=== PATIENT | male | born 1980 | race Caucasian/White ===

== ENCOUNTER 2022-07-09 17:24 | Emergency (ER) | payer OTHER, SELFPAY ==
[2022-07-09 17:24] VITALS: BP 180/97; PULSE 81; RESP 14; TEMP 36.1; O2SAT 97; BMI 37.8
[2022-07-09] MEDS: Diphth,Pertuss(Acell),Tet Vac 0.5 ML Vial IM (18:56)
--- NOTE | 2022-07-09 19:07 | EX.ED.GENINJ ---
HPI History of Present Illness Chief Complaint: Laceration Detail of Chief Complaint: Scalp laceration Informant: patient Onset/Context/Timing Onset: Today Narrative Narrative: Patient presents secondary to scalp laceration. Late this morning he was bending over and hit his head against a shelf bracket. He is a small laceration to top of his head. He believes his last tetanus was about 7 years ago. He has not had any nausea, vomiting, vision changes throughout the day. PFSH PFSH no medical history Home Medications Omeprazole [Prilosec] 40 mg PO DAILY 08/24/13 [History Last Taken 08/25/13 08:30] lithium carbonate 300 mg tablet 900 mg PO DAILY 08/24/13 [History Last Taken 08/25/13 08:30] coenzyme Q10 100 mg capsule (Co Q-10) 100 mg PO DAILY 08/25/13 [History Last Taken 08/24/13] glucosamine HCl 500 mg-msm 83 mg-chondroitin 400 mg tablet 1 ea PO DAILY 08/25/13 [History Last Taken Unknown] multivitamin with folic acid 400 mcg tablet (Thera) 1 tab PO DAILY 08/25/13 [History Last Taken Unknown] omega-3 fatty acids-fish oil 300 mg-1,000 mg capsule 1 ea PO DAILY 08/25/13 [History Last Taken Unknown] protein 454 g PO DAILY 08/25/13 [History Last Taken Unknown] Allergy/AdvReac Type Severity Reaction Status Date / Time Gadolinium-MRI Contrast Allergy Hives Verified 07/09/22 17:27 Medium Social History Smoking Status: Never smoker ROS ROS ED Constitutional Constitutional ED: Denies chills or fever(s) Eyes Eyes: Denies blurry vision or change in vision ENT ENT ED: Denies rhinorrhea Cardiovascular Cardiovascular: Denies chest pain Respiratory/Chest Respiratory/Chest: Denies cough or dyspnea Gastrointestinal Gastrointestinal: Denies abdominal pain, nausea or vomiting Musculoskeletal Musculoskeletal: Denies back pain or neck pain Neurologic Neurologic: Denies headache(s) Psychiatric Psychiatric: Denies anxiety or depression Hematologic/Lymphatic Hematologic/Lymphatic: Denies easy bleeding EXAM Physical Exam Const Vital Signs: 07/09/22 17:24 07/09/22 18:33 Temperature 96.9 F L Temperature Source Temporal Pulse Rate 81 Respiratory Rate 14 Respiratory Effort Normal Non-Labored Respiratory Pattern Normal Blood Pressure 180/97 H Blood Pressure Mean 124 Pulse Ox 97 Oxygen Delivery Method Room Air Positive well nourished and well developed General Appearance ED: well developed HEENT HEENT Narrative: 1 cm laceration over the mid parietal scalp. No active bleeding. Eyes PERRL and EOMs intact bilaterally Neck full ROM Chest Wall inspection of chest normal and palpation of chest normal Resp normal respiratory effort and clear to auscultation bilaterally Cardio regular rhythm and S1 normal heart sound GI non-tender Back/Spine Back/Spine Narrative: No cervical or thoracic tenderness to palpation. Extremity normal to inspection Neuro oriented x3, moves all extremities and no sensory deficits noted Motor Exam: strength 5/5 throughout MDM MDM MDM Narrative Medical decision making narrative: Tetanus update is provided. Nursing staff cleaned the wound on the scalp. The area is so small I do not feel that staple is needed at this time. Wound is closed with Dermabond. Return instructions given. Discharge Plan Triage Chief Complaint: Laceration Other Complaint: Head Injury ED Provider: Jaz Weir Dx/Rx/DC Orders Clinical Impression: Laceration of scalp, CHI (closed head injury) Instructions: ED Head Injury (Adult), ED Laceration: Skin Adhesive Prescriptions: No Action lithium carbonate 300 MG tablet 900 mg PO DAILY Label Comments: TAKES 3 OF 300 MG TABS IN AM Omeprazole [Prilosec] 40 MG capsule 40 mg PO DAILY protein 454 GM powder 454 g PO DAILY Label Comments: Friday, Friday, Friday only coenzyme Q10 [Co Q-10] 100 MG capsule 100 mg PO DAILY omega-3 fatty acids-fish oil 1 EACH capsule 1 ea PO DAILY multivitamin with folic acid [Thera] 1 TABLET tablet 1 tab PO DAILY glucosamine [id number] 1 EACH tablet 1 ea PO DAILY Label Comments: Takes Daily, takes BID on M, W, F. Primary Care Provider: Sejal Nelson Referrals: Sejal Nelson DO [Primary Care Provider] - As Needed Disposition Disposition: Home, Self Care Discharge Date/Time: 07/09/22 19:17
== END 2022-07-09 19:17 | disposition home or self-care (01) ==
PROVIDERS: Emergency Provider Emergency Medicine; PCP Family Medicine; Visit Provider Emergency Medicine
DX: S01.01XA Laceration without foreign body of scalp, initial encounter (principal); Z23 Encounter for immunization; X58.XXXA Exposure to other specified factors, initial encounter
CPT/HCPCS: 90471; 90715; 99283